=== PATIENT | female | born 1985 | race Caucasian/White ===

== ENCOUNTER 2017-02-12 11:17 | Emergency (ER) | payer BC, MEDICAID ==
[2017-02-12 11:22] VITALS: BP 126/81
--- NOTE | 2017-02-12 11:54 | ER Document Report ---
HPI - HPI Patient complains to provider of: Sore throat Onset: Other Onset/Duration: Sudden Quality of pain: Achy Severity: Moderate Pain Level: 3 Context: Patient states she has had a sore throat for a couple of days but got much worse last night. Denies difficulty swallowing or breathing. Unsure if she had a fever but states she was sweating last night. Patient does have a history of strep Associated Symptoms: Chills, Sore throat Exacerbated by: Food Relieved by: Denies Similar symptoms previously: Yes Recently seen / treated by doctor: No - ROS ROS below otherwise negative: Yes Systems Reviewed and Negative: Yes All other systems reviewed and negative - CONSTITUTIONAL Constitutional: REPORTS: Chills - EENT EENT: REPORTS: Sore Throat. DENIES: Congestion - NEURO Neurology: DENIES: Headache - CARDIOVASCULAR Cardiovascular: DENIES: Chest pain - RESPIRATORY Respiratory: DENIES: Trouble Breathing - GASTROINTESTINAL Gastrointestinal: DENIES: Abdominal Pain - URINARY Urinary: DENIES: Dysuria - REPRODUCTIVE Reproductive: DENIES: : - MUSCULOSKELETAL Musculoskeletal: DENIES: Extremity pain - DERM Skin Color: Normal Past Medical History - General Information source: Patient - Social History Smoking Status: Current Every Day Smoker Cigarette use (# per day): Yes Frequency of alcohol use: Occasional Drug Abuse: None Lives with: Family Family History: Reviewed & Not Pertinent - Past Medical History Cardiac Medical History: Reports: Hx Hypertension - during Past Surgical History: Reports: Hx Section - Immunizations Immunizations up to date: Yes Hx Diphtheria, Pertussis, Tetanus Vaccination: Yes Vertical Provider Document - CONSTITUTIONAL Agree With Documented VS: Yes Exam Limitations: No Limitations General Appearance: WD/WN, No Apparent Distress - INFECTION CONTROL TRAVEL OUTSIDE OF THE [place] IN LAST 30 DAYS: No - HEENT HEENT: Atraumatic, Normocephalic, Pharyngeal Exudate, Pharyngeal Erythema - NECK Neck: Lymphadenopathy-Left, Lymphadenopathy-Right - RESPIRATORY Respiratory: Breath Sounds Normal, No Respiratory Distress O2 Sat by Pulse Oximetry: 100 - CARDIOVASCULAR Cardiovascular: Regular Rate, Regular Rhythm - GI/ABDOMEN Gastrointestinal: Abdomen Soft, Abdomen Non-Tender - MUSCULOSKELETAL/EXTREMETIES Musculoskeletal/Extremeties: MAEW - NEURO Level of Consciousness: Awake, Alert, Appropriate - DERM Integumentary: Warm, Dry, No Rash Course - Vital Signs Vital signs: Temp Pulse Resp BP Pulse Ox 99.5 F 101 H 15 126/81 H 100 12/24/17 11:21 02/12/17 11:21 02/12/17 11:21 02/12/17 11:21 02/12/17 11:21 Discharge - Discharge Clinical Impression: Exudative pharyngitis Condition: Good Disposition: HOME, SELF-CARE Instructions: Penicillin V K ([facility]), Strep Throat ([facility]) Additional Instructions: You must finish all antibiotics as prescribed Tylenol or ibuprofen as needed for Discomfort or fever Push fluids Change your toothbrush in 2 days Follow-up with your doctor for recheck if not in 3-4 days, earlier if worsens Return as needed Prescriptions: Penicillin V Potassium [Penicillin Vk 500 mg Tablet] 500 mg PO BID #20 tablet Forms: Return to Work
== END 2017-02-12 11:57 | disposition home or self-care (01) ==
LOC: ER 11:17
DX: J02.9 Acute pharyngitis, unspecified (principal); F17.210 Nicotine dependence, cigarettes, uncomplicated
CPT/HCPCS: 99282

== ENCOUNTER 2019-01-23 11:03 | Emergency (ER) | payer MEDICAID, OTHER ==
--- NOTE | 2019-01-23 12:06 | ER Document Report ---
ED Medical Screen (RME) - General Chief Complaint: High Blood Pressure Stated Complaint: RAPID HEART RATE/BLOOD PRESSURE ISSUES Time Seen by Provider: 01/23/19 12:00 Primary Care Provider: AYESHA CHEN MD [ACTIVE STAFF] - Follow up as needed Mode of Arrival: Ambulatory Information source: Patient Notes: 33-year-old female G3, P1 approximately 12 weeks presents emergency department with complaints of elevated blood pressure increased heart rate. Al so complains of low abdominal pain denies fever vomiting diarrhea but denies pain with void. She reports her OB sent her here. Has history of high blood pressure with her first . I have greeted and performed a rapid initial assessment of this patient. A comprehensive ED assessment and evaluation of the patient, analysis of test results and completion of the medical decision making process will be conducted by additional ED providers. Dictation of this chart was performed using voice recognition software; therefore, there may be some unintended grammatical errors. TRAVEL OUTSIDE OF THE [place] IN LAST 30 DAYS: No - Related Data Allergies/Adverse Reactions: No Known Allergies Allergy (Verified 01/23/19 15:37) Home Medications: Past Medical History - Social History Chew tobacco use (# tins/day): No Frequency of alcohol use: None Drug Abuse: None - Past Medical History Cardiac Medical History: Reports: Hx Hypertension - during Renal/ Medical History: Denies: Hx Peritoneal Dialysis Past Surgical History: Reports: Hx Cardiac Catheterization, Hx Section - Immunizations Immunizations up to date: Yes Hx Diphtheria, Pertussis, Tetanus Vaccination: Yes Physical Exam - Vital signs Vitals: Temp Pulse Resp BP Pulse Ox 98.8 F 95 22 H 135/90 H 100 01/23/19 11:34 01/23/19 11:34 01/23/19 11:34 01/23/19 11:34 01/23/19 11:34 Course - Vital Signs Vital signs: Temp Pulse Resp BP Pulse Ox 97.6 F 89 16 135/72 H 100 01/23/19 17:53 01/23/19 17:53 01/23/19 17:53 01/23/19 17:53 01/23/19 17:53 - Laboratory Result Diagrams: 01/23/19 12:17 01/23/19 12:17 Laboratory results interpreted by me: 01/23/19 01/23/19 12:17 12:17 WBC 10.6 H Urine Ketones 20 H Doctor's Discharge - Discharge Clinical Impression: Palpitations, First trimester , Dehydration during Condition: Stable Disposition: HOME, SELF-CARE Additional Instructions: Today you were mildly dehydrated which is likely contributing to your sensations of palpitations. You did not have any while you are on the monitor so I cannot tell you exactly what is causing them. If you continue to have palpitations despite drinking plenty of fluids please consider following up with Dr. Chen as an outpatient for a Holter monitor. Your [employer] OFF BEARER can likely arrange this referral however sometimes you can also just call his office and let him know that the emergency department recommended you see him for a Holter monitor. Referrals: AYESHA CHEN MD [ACTIVE STAFF] - Follow up as needed
[2019-01-23 12:38] LABS: ABSOLUTE LYMPHOCYTES (AUTO) 1.9 10^3/uL (0.5-4.7); ABSOLUTE MONOCYTES (AUTO) 0.7 10^3/uL (0.1-1.4); ABSOLUTE NEUT (AUTO) 7.9 10^3/uL (1.7-8.2); BASOPHILS % (AUTO) 0.2 % (0-2); EOSINOPHILS % (AUTO) 0.2 % (0-6); HEMATOCRIT 42.7 % (36.0-47.0); HEMOGLOBIN 14.9 g/dL (12.0-15.5); LYMPHOCYTES % (AUTO) 18.1 % (13-45); MEAN CORPUSCULAR HEMOGLOBIN 31.3 pg (27.0-33.4); MEAN CORPUSCULAR HGB CONC 34.8 g/dL (32.0-36.0); MEAN CORPUSCULAR VOLUME 90 fl (80-97); MONOCYTES % (AUTO) 6.9 % (3-13); PLATELET COUNT 311 10^3/uL (150-450); RED BLOOD COUNT 4.75 10^6/uL (3.72-5.28); RED CELL DISTRIBUTION WIDTH 12.5 % (11.5-14.0); SEGMENTED NEUTROPHILS % (AUTO) 74.6 % (42-78); TOTAL CELLS COUNTED % (AUTO) 100 %; WHITE BLOOD COUNT 10.6 10^3/uL (4.0-10.5)
[2019-01-23 12:42] LABS: APPEARANCE,URINE SLIGHTLY-CLOUDY; BILIRUBIN,URINE NEGATIVE (NEGATIVE); COLOR,URINE YELLOW; GLUCOSE, URINE NEGATIVE (NEGATIVE); KETONES,URINE 20 mg/dL (NEGATIVE); LEUKOCYTE ESTERASE,URINE NEGATIVE (NEGATIVE); NITRITE,URINE NEGATIVE (NEGATIVE); PROTEIN,URINE NEGATIVE (NEGATIVE); URINE SPECIFIC GRAVITY 1.017; UROBILINOGEN,URINE NEGATIVE mg/dL (<2.0)
[2019-01-23 12:46] LABS: ALKALINE PHOSPHATASE 67 U/L (38-126); ANION GAP 8 (5-19); ASPARTATE AMINO TRANSFERASE 19 U/L (14-36); BILIRUBIN,DIRECT 0.1 mg/dL (0.0-0.4); BILIRUBIN,TOTAL 0.6 mg/dL (0.2-1.3); BLOOD UREA NITROGEN 7 mg/dL (7-20); CALCIUM 9.8 mg/dL (8.4-10.2); CARBON DIOXIDE 23 mmol/L (22-30); CHLORIDE 106 mmol/L (98-107); GLUCOSE 88 mg/dL (75-110); TOTAL PROTEIN 7.3 g/dL (6.3-8.2); URIC ACID 4.4 mg/dL (2.5-6.2)
--- NOTE | 2019-01-23 14:01 | RADIOLOGY REPORT (SQ) ---
EXAM DESCRIPTION: U/S 1TRIMESTER/1GEST W/DOPPLER COMPLETED DATE/TIME: 01/23/2019 1:26 pm REASON FOR STUDY: LOW ABD PAIN COMPARISON: None. TECHNIQUE: Transabdominal static and realtime grayscale images acquired of the pelvis. Additional se lected spectral and color Doppler images recorded. All images stored on PACs. bHCG: Unavailable. CLINICAL DATES: LMP 11/02/2018. EGA based on LMP 11 weeks 5 days. SHANDA based on LMP 08/09/2019. LIMITATIONS: None. FINDINGS: FETUS: Single Living intrauterine . ULTRASOUND EGA: 12 weeks 4 days. ULTRASOUND SHANDA: 08/03/2019. CRL: 6.11 cm. FHR: 175 beats per minute. SURVEY: Too early to assess. AMNIOTIC FLUID: Too early to assess. PLACENTA: Too early to assess. SUBCHORIONIC BLEED: No. UTERUS: The uterus measures 12.4 x 10 x 7.4 cm in length. CERVICAL LENGTH: 2.9 cm. Closed. RIGHT ADNEXA: The right ovary measures 2.3 x 2.8 x 2.9 cm and on Doppler there is intact arterial inf low within the ovarian stroma. LEFT ADNEXA: Unable to visualize the left ovary. There is no adnexal mass or free fluid. FREE FLUID: None. OTHER: No other finding. IMPRESSION: SINGLE LIVE INTRAUTERINE GESTATION. EGA 11 weeks 5 days based on LMP. Trimester of : First trimester - 0 to 13 weeks. TECHNICAL DOCUMENTATION: JOB ID: [id number] [employer]- All Rights Reserved rev Reading location - IP/workstation name: [email or web address]
[2019-01-23] MEDS ORDERED: NORMAL SALINE 1000 ML 1,000 ML IV ONE (15:51)
--- NOTE | 2019-01-23 15:55 | ER Document Report ---
ED General - General Chief Complaint: High Blood Pressure Stated Complaint: RAPID HEART RATE/BLOOD PRESSURE ISSUES Time Seen by Provider: 01/23/19 12:00 Mode of Arrival: Ambulatory Notes: 33-year-old female who is a A1 presents emergency department referred by [employer] SUPERVISOR's office for feeling like her heart is racing and skipping beats, states that it is worse at night and is associated with some pressure and tightness in her chest. She states she has had increased nausea and increased vomiting as well as increased anxiety. Denies any history of anxiety, denies anything like this happening previously with her last . This is been going on for approximately 1 week. She does have a history of gestational hypertension, is not currently on any medications for her blood pressure. Has a follow-up appointment with her OB this Monday. TRAVEL OUTSIDE OF THE [place] IN LAST 30 DAYS: No - Related Data Allergies/Adverse Reactions: No Known Allergies Allergy (Verified 01/23/19 15:37) Home Medications: Past Medical History - General Information source: Patient - Social History Smoking Status: Former Smoker Chew tobacco use (# tins/day): No Frequency of alcohol use: None Drug Abuse: None Family History: Reviewed & Not Pertinent Patient has suicidal ideation: No Patient has homicidal ideation: No - Past Medical History Cardiac Medical History: Reports: Hx Hypertension - during Renal/ Medical History: Denies: Hx Peritoneal Dialysis Past Surgical History: Reports: Hx Cardiac Catheterization, Hx Section - Immunizations Immunizations up to date: Yes Hx Diphtheria, Pertussis, Tetanus Vaccination: Yes Review of Systems - Review of Systems Constitutional: No symptoms reported EENT: No symptoms reported Cardiovascular: See HPI Respiratory: No symptoms reported Gastrointestinal: See HPI Female Genitourinary: See HPI Neurological/Psychological: See HPI, Anxiety -: Yes All other systems reviewed and negative Physical Exam - Vital signs Vitals: Temp Pulse Resp BP Pulse Ox 98.8 F 95 22 H 135/90 H 100 01/23/19 11:34 01/23/19 11:34 01/23/19 11:34 01/23/19 11:34 01/23/19 11:34 Interpretation: Tachypneic - Notes Notes: GENERAL: Alert, interacts well. No acute distress. HEAD: Normocephalic, atraumatic EYES: Pupils equal, round and reactive to light, extraocular movements intact. ENT: Oral mucosa moist, tongue midline. NECK: Full range of motion, supple, trachea midline. LUNGS: Clear to auscultation bilaterally, no wheezes, rales or rhonchi, no respiratory distress. Tachypnea recorded on arrival vital signs is not present during my examination, respiratory rate is 12. HEART: Regular rate and rhythm, no murmurs, gallops, rubs. ABDOMEN: Soft, nontender, nondistended, bowel sounds present in all 4 quadrants. EXTREMITIES: Moves all 4 extremities spontaneously, no edema, radial and dorsalis pedis pulses 2/4 bilaterally. No cyanosis. NEUROLOGICAL: Alert and oriented x3, normal speech. PSYCH: Normal mood, normal affect. SKIN: Warm, Dry, normal turgor, no rashes or lesions noted. Course - Re-evaluation Re-evalutation: 01/23/19 17:48 CBC shows slight leukocytosis at 10.6, CMP unremarkable, urinalysis shows 20 ketones, OB ultrasound shows first trimester of 12 weeks and 4 days and 175 bpm heart rate. After liter fluid patient is feeling much better, has not had any further sensation of palpitations. While on the monitor she is unfortunately not had any palpitations. Patient is recommended to drink plenty of fluids, follow-up with OB as an outpatient. If she continues to have a sensation of palpitations she should follow-up with Dr. Chen as an outpatient for Holter monitor. - Vital Signs Vital signs: Temp Pulse Resp BP Pulse Ox 98.8 F 95 22 H 135/90 H 100 01/23/19 11:34 01/23/19 11:34 01/23/19 11:34 01/23/19 11:34 01/23/19 11:34 - Laboratory Result Diagrams: 01/23/19 12:17 01/23/19 12:17 Laboratory results interpreted by me: 01/23/19 01/23/19 12:17 12:17 WBC 10.6 H Urine Ketones 20 H - EKG Interpretation by Me Additional EKG results interpreted by me: 01/23/19 15:54 EKG shows sinus tachycardia at a rate of 101, normal axis, normal intervals, no ST segment elevations or depressions, T wave inversions noted in lead III and aVF, these are nonspecific per my interpretation. Discharge - Discharge Clinical Impression: Palpitations, First trimester , Dehydration during Condition: Stable Disposition: HOME, SELF-CARE Additional Instructions: Today you were mildly dehydrated which is likely contributing to your sensations of palpitations. You did not have any while you are on the monitor so I cannot tell you exactly what is causing them. If you continue to have palpitations despite drinking plenty of fluids please consider following up with Dr. Chen as an outpatient for a Holter monitor. Your [employer] SUPERVISOR can likely arrange this referral however sometimes you can also just call his office and let him know that the emergency department recommended you see him for a Holter monitor. Referrals: AYESHA CHEN MD [ACTIVE STAFF] - Follow up as needed
[2019-01-23 17:55] VITALS: BP 135/72
--- NOTE | 2019-01-24 00:05 | EKG REPORT ---
SEVERITY:- ABNORMAL ECG - SINUS TACHYCARDIA PROBABLE LEFT ATRIAL ABNORMALITY INFERIOR Q WAVES, PROBABLY NORMAL VARIATION NONSPECIFIC T ABNORMALITIES, INFERIOR LEADS : Confirmed by: Maria Fernanda Sauer MD 24-Jan-2019 00:04:50
== END 2019-01-23 17:53 | disposition home or self-care (01) ==
LOC: ER 11:03
DX: O26.891 Other specified pregnancy related conditions, first trimester (principal); R00.2 Palpitations; R00.0 Tachycardia, unspecified; O99.281 Endocrine, nutritional and metabolic diseases complicating pregnancy, first trimester; E86.0 Dehydration; O99.341 Other mental disorders complicating pregnancy, first trimester; F41.9 Anxiety disorder, unspecified; O99.111 Other diseases of the blood and blood-forming organs and certain disorders involving the immune mechanism complicating pregnancy, first trimester; D72.829 Elevated white blood cell count, unspecified; Z3A.12 12 weeks gestation of pregnancy; Z79.899 Other long term (current) drug therapy
CPT/HCPCS: 93005; 99284; 96360; 36415; 83615; 84550; 85025; 80053; 81001; 76801; 93976; 93010; J7030